=== PATIENT | male | born 1965 | race Caucasian/White ===

== ENCOUNTER 2024-06-24 05:17 | Inpatient (IN) | payer OTHER ==
[2024-06-17 11:23] LABS: BASOPHILS % (AUTO) 0.5 % (0-1); EOSINOPHILS # (AUTO) 0.1 X10'3 (0-0.9); EOSINOPHILS % (AUTO) 1.8 % (0-6); LYMPHOCYTES # (AUTO) 1.4 X10'3 (1.1-4.8); LYMPHOCYTES % (AUTO) 28.5 % (21-51); MEAN CORPUSCULAR HEMOGLOBIN 31.1 PG (27.0-31.0); MEAN CORPUSCULAR HGB CONC 33.6 g/dL (33.0-36.5); MEAN CORPUSCULAR VOLUME 92.4 FL (78-98); MEAN PLATELET VOLUME 6.8 FL (7.4-10.4); MONOCYTES # (AUTO) 0.4 X10'3 (0-0.9); NEUTROPHILS # (AUTO) 2.9 X10'3 (1.8-7.7); NEUTROPHILS % (AUTO) 61.2 % (42-75); PRE OP HEMATOCRIT 44.9 % (42.0-52.0); PRE OP HEMOGLOBIN 15.1 g/dL (14.0-17.9); PRE OP PLATELET COUNT 314 X10'3 (140-440); PRE OP WHITE BLOOD COUNT 4.8 10'3 (4.8-10.8); RED BLOOD COUNT 4.86 X10'6 (4.70-6.10); RED CELL DISTRIBUTION WIDTH 13.1 % (11.5-14.5)
[2024-06-17 11:40] LABS: ALBUMIN 3.9 G/DL (3.4-5.0); ALBUMIN/GLOBULIN RATIO 1.2 (1.1-1.5); ALKALINE PHOSPHATASE 83 IU/L (46-116); BLOOD UREA NITROGEN 11 MG/DL (7-18); BUN/CREATININE RATIO 9.2 (10.0-20.0); CALCIUM 9.3 MG/DL (8.5-10.1); CHLORIDE 106 MMOL/L (99-107); CREATININE 1.19 MG/DL (0.60-1.10); PRE OP ALT 36 U/L (30-65); PRE OP ANION GAP 8 (8-16); PRE OP AST 27 U/L (10-37); PRE OP BILIRUB, TOTAL 0.5 MG/DL (0.0-1.0); PRE OP GLUCOSE 103 MG/DL (70-104); PRE OP POTASSIUM 4.2 MMOL/L (3.4-5.1); PRE OP SODIUM 141 MMOL/L (135-145); TOTAL CARBON DIOXIDE 27.1 MMOL/L (24-32); TOTAL PROTEIN 7.1 G/DL (6.4-8.2); eGFR 63 ML/MIN
[2024-06-24] VITALS (28 sets, daily range): BP systolic 81–123; BP diastolic 47–78; PULSE 40–62; RESP 7–17; TEMP 97.6–98.3; O2SAT 91–100
[~2024-06-24] VITALS: Ht 180.3 cm; Wt 81.9 kg
[~2024-06-24 05:17] MED LIST: IBUP-1984 PO
[2024-06-24] MEDS: famotidine 20mg tablet PO ONE (06:03)
[2024-06-24] MEDS: VANCOMYCIN 1,500MG inj. 1,500 MG in normal saline 500ml IV soln 300 ML IV ONE (06:03)
[2024-06-24] MEDS: ceFAZolin 2gm in dextrose, iso 50 ML IV ONE (06:04)
[2024-06-24] MEDS: tranexamic acid 1gm/0.7% sal. 100 ML IV ONE (06:04)
[2024-06-24] MEDS: ringers solution, lacted 1,000 ML IV SCH ×2 (06:04→08:05)
[2024-06-24] MEDS ORDERED: vancomycin 1,000mg inj ONE (07:11)
[2024-06-24] MEDS ORDERED: fentaNYL/PF 50MCG/1 ML 2ML syringe ONE ×2 (07:32→13:53)
[2024-06-24] MEDS ORDERED: midazolam 1 mg/ML 2ml injection ONE ×2 (07:32)
[2024-06-24] MEDS ORDERED: proCHLORperazine 10 MG/2 ml inj IV PRN (08:05)
[2024-06-24] MEDS ORDERED: meperidine/PF 25mg/ml syringe IV PRN ×2 (08:05)
[2024-06-24] MEDS ORDERED: ondansetron/PF 4mg/2ml inj IV PRN (08:05)
[2024-06-24] MEDS ORDERED: morphine 4 MG/ML inj SYRINge IV PRN (08:05)
[2024-06-24] MEDS ORDERED: morphine 2 MG/ML inj. syringe IV PRN (08:05)
[2024-06-24] MEDS ORDERED: MIDAZolam 1 MG/ML 5ML VIAL ONE (13:54)
[2024-06-24] MEDS ORDERED: sevoflurane 250ml liquid IH ONE (13:54)
[2024-06-24] MEDS ORDERED: propofol inj 20 ML IV ONE (17:01)
[2024-06-24] MEDS ORDERED: acetaminophen 325mg tablet PO PRN (17:15)
[2024-06-24] MEDS ORDERED: diphenhydrAMINE 25mg capsule PO PRN ×2 (17:15)
[2024-06-24] MEDS ORDERED: magnesium hydroxide 30ml (MOM) UD suspension PO PRN (17:15)
[2024-06-24] MEDS ORDERED: bisacodyl 10mg suppository rectal RC PRN (17:15)
[2024-06-24] MEDS ORDERED: naloxone 0.4 mg/ml inj IV PRN (17:15)
[2024-06-24] MEDS: glycopyrrolate 0.2mg/ml inj IV ONE (17:55)
[2024-06-24] MEDS: acetaminophen 1,000mg/100ml IV 100 ML IV ONE (17:56)
[2024-06-24] MEDS: ringers solution, lacted 1,000 ML IV ONE (17:57)
[2024-06-24] MEDS: meperidine/PF 25mg/ml syringe IV PRN (18:21)
[2024-06-24] MEDS: acetaminophen 325mg tablet PO SCH (19:55)
[2024-06-24] MEDS: gabapentin 300mg capsule PO SCH (20:01)
[2024-06-24] MEDS: sennosides 8.6mg tablet PO SCH (20:02)
[2024-06-24] MEDS: potassium Cl 20mEq in NS 1,000 ML IV SCH (20:09)
[2024-06-24] MEDS: tranexamic acid inj. 820 MG in normal saline 100ml IV soln 91.8 ML IV ONE (20:09)
[2024-06-24] MEDS: VANCOMYCIN 1GM 200ML H20 (PEG) 200 ML IV SCH (21:23)
[2024-06-24] MEDS: HYDROmorphone 1 mg/ml syringe IV PRN (21:25)
[2024-06-25] MEDS: HYDROmorphone inj. 0.5 MG/0.5 ML DISP.SYRIN IV PRN (01:03)
[2024-06-25] MEDS: ceFAZolin/D5W- 1GM premix 50 ML IV SCH (01:04)
[2024-06-25 02:00] VITALS: BP 113/67; PULSE 60; RESP 14; TEMP 97.6; O2SAT 99
[2024-06-25] MEDS: oxyCODONE IR 5mg (immed. release) tablet PO PRN ×2 (04:40→17:16)
[2024-06-25 06:00] VITALS: BP 97/57; PULSE 49; RESP 13; TEMP 98.3; O2SAT 98
[2024-06-25] MEDS: enoxaparin 40mg/0.4ml syringe SQ SCH (07:51)
[2024-06-25] MEDS: ondansetron/PF 4mg/2ml inj IV PRN (09:29)
[2024-06-25 10:00] VITALS: BP 106/54; PULSE 51; RESP 15; TEMP 97.9; O2SAT 94
[2024-06-25] MEDS: normal saline 1000ml 1,000 ML IV SCH (11:20)
[2024-06-25] MEDS: normal saline 1000ml 1,000 ML IV ONE ×2 (13:00→14:11)
[2024-06-25 18:00] VITALS: BP 98/50; PULSE 69; RESP 16; TEMP 98.7; O2SAT 97
[2024-06-25 22:00] VITALS: BP 86/43; PULSE 74; RESP 14; TEMP 98; O2SAT 95
[2024-06-26 06:00] VITALS: BP 123/71; PULSE 70; RESP 16; TEMP 98.8; O2SAT 94
[2024-06-26 08:44] LABS: BASOPHILS % (AUTO) 0.2 % (0-1); EOSINOPHILS % (AUTO) 0.3 % (0-6); HEMATOCRIT 34.5 % (42.0-52.0); HEMOGLOBIN 11.4 g/dl (14.0-17.9); LYMPHOCYTES # (AUTO) 1.7 X10'3 (1.1-4.8); LYMPHOCYTES % (AUTO) 18.2 % (21-51); MEAN CORPUSCULAR HEMOGLOBIN 30.6 PG (27.0-31.0); MEAN CORPUSCULAR HGB CONC 33.2 g/dL (33.0-36.5); MEAN CORPUSCULAR VOLUME 92.3 FL (78-98); MEAN PLATELET VOLUME 7.4 FL (7.4-10.4); MONOCYTES % (AUTO) 10.4 % (2-12); NEUTROPHILS # (AUTO) 6.5 X10'3 (1.8-7.7); NEUTROPHILS % (AUTO) 70.9 % (42-75); PLATELET COUNT 211 X10'3 (140-440); RED BLOOD COUNT 3.73 X10'6 (4.70-6.10); RED CELL DISTRIBUTION WIDTH 13.1 % (11.5-14.5); WHITE BLOOD COUNT 9.2 X10'3 (4.5-11.0)
[2024-06-26 09:00] LABS: ALBUMIN 2.2 G/DL (3.4-5.0); ANION GAP 7 (8-16); BLOOD UREA NITROGEN 10 MG/DL (7-18); BUN/CREATININE RATIO 9.3 (10.0-20.0); CALCIUM 7.8 MG/DL (8.5-10.1); CHLORIDE 108 MMOL/L (99-107); CREATININE 1.08 MG/DL (0.60-1.10); GLUCOSE 105 MG/DL (70-104); POTASSIUM 3.9 MMOL/L (3.5-5.1); SODIUM 141 MMOL/L (135-145); TOTAL CARBON DIOXIDE 26.5 MMOL/L (24-32); eCRCL 79 ML/MIN; eGFR 70 ML/MIN
[2024-06-26 10:00] VITALS: BP 95/58; PULSE 75; RESP 16; TEMP 98.9; O2SAT 97
[2024-06-26] MEDS ORDERED: acetaminophen 325mg tablet PO PRN (17:15)
== END 2024-06-26 14:20 | disposition home or self-care (01) | DRG 470 ==
LOC: PAS IN 05:17 → ORTHO 4S 19:30
PROVIDERS: ADMIT Orthopaedic Surgery; ATTEND Orthopaedic Surgery
PROC: 0SRB03A Replacement of Left Hip Joint with Ceramic Synthetic Substitute, Uncemented, Open Approach (ICD-10-PCS; principal; 2024-06-24 07:33)
DX: M16.12 Unilateral primary osteoarthritis, left hip (principal)
CPT/HCPCS: 36415; 72170; 73502; 80048; 80053; 82948; 85025; 86885; 86900; 86901; 87081; 93005; 97110; 97116; 97162; 97530; A4215; A4618; A6449; A7000; C1776; C9250; G0378; J0131; J0690; J1171; J1650; J2175; J2250; J2405; J2704; J3010; J3370; J3372; J3480; J3490; J7030; J7040; J7120